=== PATIENT | male | born 1990 | race Caucasian/White ===

== ENCOUNTER 2019-07-04 09:15 | Emergency (ER) | payer MEDICAID, OTHER ==
[~2019-07-04] VITALS: Ht 172.7 cm; Wt 104.3 kg
[2019-07-04 09:15] VITALS: BP_SYST 111
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
--- NOTE | 2019-07-04 09:30 | NUR ---
ER at bedside examining patient.
--- NOTE | 2019-07-04 09:42 | NUR ---
Pt medicated for R shoulder pain, resting in gurney, calm and cooperative at this time.
[2019-07-04] MEDS ORDERED: IBUPROFEN 600 MG TABLET PO ONE (09:45)
[2019-07-04 10:10] VITALS: BP_SYST 111
--- NOTE | 2019-07-04 10:10 | NUR ---
Patient given written and verbal discharge instructions and verbalizes understanding. ER MD discussed with patient the results and treatment provided. Patient in stable condition. ID arm band removed. Patient educated on pain management and to follow up with PMD. Pain Scale 3. Opportunity for questions provided and answered. Medication side effect fact sheet provided. Pt has been ok to book.
== END 2019-07-04 10:10 ==
LOC: SED 09:15
DX: S43.402A Unspecified sprain of left shoulder joint, initial encounter (principal); S50.11XA Contusion of right forearm, initial encounter; V49.9XXA Car occupant (driver) (passenger) injured in unspecified traffic accident, initial encounter; Y93.89 Activity, other specified; Y92.413 State road as the place of occurrence of the external cause; Y99.8 Other external cause status
CPT/HCPCS: 73030; 73090; 99284